=== PATIENT | male | born 1980 | race African-American/Black ===

== ENCOUNTER 2024-03-28 12:32 | Emergency (ER) | payer MEDICAID ==
[~2024-03-28] VITALS: Ht 182.9 cm; Wt 113.0 kg
[2024-03-28 12:38] VITALS: O2SAT 97
[2024-03-28 13:45] VITALS: BP 127/75; PULSE 97; RESP 19; TEMP 98
[2024-03-28] MEDS: ACETAMINOPHEN 325MG TABLET PO ONE (13:45)
[2024-03-28] MEDS: KETOROLAC 30MG/ML VIAL IM ONE (13:45)
[2024-03-28] MEDS ORDERED: ACET-2708 MT (13:58)
[2024-03-28] MEDS ORDERED: NAPR-681 MT (13:58)
== END 2024-03-28 14:30 | disposition home or self-care (01) ==
LOC: ER 12:32
DX: S83.92XA Sprain of unspecified site of left knee, initial encounter (principal); Y93.89 Activity, other specified; Y92.89 Other specified places as the place of occurrence of the external cause; Y99.8 Other external cause status
CPT/HCPCS: 73560; 99283; J1885; Z7610 ×4; C1893